=== PATIENT | female | born 1980 | race Caucasian/White ===

== ENCOUNTER → 2016-05-26 | Outpatient (CLI) | payer BC ==
[~2016-05-26] VITALS: Ht 162.6 cm; Wt 131.1 kg
[~2016-05-26] MED LIST: ALL DAY ALLERGY PO; FLONASEALLERGY NS
[2016-05-26 10:14] VITALS: BP 122/70; PULSE 89
[2016-06-14 17:11] VITALS: BP 122/70; PULSE 89
== END ==
LOC: LIGHT 10:00
DX: E16.1 Other hypoglycemia (principal); F50.81 Binge eating disorder; F33.8 Other recurrent depressive disorders; E66.01 Morbid (severe) obesity due to excess calories; Z68.42 Body mass index [BMI] 45.0-49.9, adult

== ENCOUNTER → 2016-06-15 | Outpatient (CLI) | payer BC | LOC: LIGHT 11:16 | DX: Z68.42 Body mass index [BMI] 45.0-49.9, adult (principal) ==

== ENCOUNTER → 2016-06-24 | Outpatient (CLI) | payer BC ==
[~2016-06-24] VITALS: Ht 162.6 cm; Wt 130.4 kg
== END ==
LOC: LIGHT 08:45
DX: E16.1 Other hypoglycemia (principal); F50.81 Binge eating disorder; F33.8 Other recurrent depressive disorders; E66.01 Morbid (severe) obesity due to excess calories; Z68.42 Body mass index [BMI] 45.0-49.9, adult; E88.81 Metabolic syndrome and other insulin resistance; M54.5 Low back pain

== ENCOUNTER → 2016-07-27 | Outpatient (CLI) | payer BC | LOC: LIGHT 08:51 | DX: Z02.89 Encounter for other administrative examinations (principal) ==

== ENCOUNTER → 2016-07-29 | Outpatient (CLI) | payer BC ==
[~2016-07-29] VITALS: Ht 162.6 cm; Wt 127.0 kg
[2016-07-29 16:57] VITALS: BP 126/67; PULSE 85
[2016-08-09 13:07] VITALS: BP 137/67; PULSE 86
== END ==
LOC: LIGHT 11:29
DX: E16.1 Other hypoglycemia (principal); F50.81 Binge eating disorder; F33.9 Major depressive disorder, recurrent, unspecified; E66.01 Morbid (severe) obesity due to excess calories; Z68.42 Body mass index [BMI] 45.0-49.9, adult; Z71.3 Dietary counseling and surveillance

== ENCOUNTER → 2016-09-02 | Outpatient (CLI) | payer BC ==
[~2016-09-02] VITALS: Ht 162.6 cm; Wt 126.3 kg
[2016-09-02 14:11] VITALS: BP 113/65; PULSE 81
== END ==
LOC: LIGHT 14:10
DX: E16.1 Other hypoglycemia (principal); F50.81 Binge eating disorder; F33.9 Major depressive disorder, recurrent, unspecified; E66.01 Morbid (severe) obesity due to excess calories; Z68.42 Body mass index [BMI] 45.0-49.9, adult; Z71.3 Dietary counseling and surveillance

== ENCOUNTER → 2016-11-18 | Outpatient (CLI) | payer BC ==
[~2016-11-18] VITALS: Ht 162.6 cm; Wt 122.9 kg
[2016-11-18 08:45] VITALS: BP 90/66; PULSE 64
== END ==
LOC: LIGHT 08:40
DX: E16.1 Other hypoglycemia (principal); F50.81 Binge eating disorder; F33.9 Major depressive disorder, recurrent, unspecified; E66.01 Morbid (severe) obesity due to excess calories; Z68.42 Body mass index [BMI] 45.0-49.9, adult; Z71.3 Dietary counseling and surveillance

== ENCOUNTER → 2017-01-20 | Outpatient (CLI) | payer BC ==
[~2017-01-20] VITALS: Ht 162.6 cm; Wt 122.2 kg
[2017-01-20 09:10] VITALS: BP 104/80; PULSE 76
== END ==
LOC: LIGHT 08:43
DX: E16.1 Other hypoglycemia (principal); F50.81 Binge eating disorder; F33.9 Major depressive disorder, recurrent, unspecified; E66.01 Morbid (severe) obesity due to excess calories; Z68.42 Body mass index [BMI] 45.0-49.9, adult; Z71.3 Dietary counseling and surveillance

== ENCOUNTER → 2017-03-24 | Outpatient (CLI) | payer BC ==
[~2017-03-24] VITALS: Ht 162.6 cm; Wt 119.1 kg
[~2017-03-24] MED LIST changes: +CYMBALTA 60MG60 MG PO
[2017-03-24 08:41] VITALS: BP 124/62; PULSE 80
== END ==
LOC: LIGHT 08:28
DX: E16.1 Other hypoglycemia (principal); F50.81 Binge eating disorder; F33.9 Major depressive disorder, recurrent, unspecified; E66.01 Morbid (severe) obesity due to excess calories; Z68.42 Body mass index [BMI] 45.0-49.9, adult; Z71.3 Dietary counseling and surveillance
CPT/HCPCS: G0463

== ENCOUNTER → 2017-09-23 | Outpatient (REF) ==
[2017-09-23 18:27] LABS: THYROID STIMULATING HORMONE 2.42 uIU/mL (0.465-4.680)
== END ==
LOC: ZLAB.WCH 17:42
PROVIDERS: Family Medicine
DX: Z01.89 Encounter for other specified special examinations (principal)

== ENCOUNTER → 2017-09-27 | Outpatient (REF) ==
[2017-09-27 16:27] LABS: IRON,SERUM 43 ug/dL (35-150)
[2017-09-27 17:04] LABS: FERRITIN 36 ng/mL (6-137)
== END ==
LOC: ZLAB.WCH 16:00
PROVIDERS: Family Medicine
DX: Z01.89 Encounter for other specified special examinations (principal)

== ENCOUNTER → 2017-09-29 | Outpatient (REF) | LOC: ZLAB.WCH 15:56 | DX: Z01.89 Encounter for other specified special examinations (principal) ==